=== PATIENT | female | born 1955 | race Caucasian/White ===

== ENCOUNTER 2019-02-26 09:40 | Emergency (ER) | payer BC ==
[2019-02-26] MEDS ORDERED: Ondansetron 4 MG/2 ML SDV IVPUSH ONE (09:43)
[2019-02-26] MEDS ORDERED: Sodium Chloride 0.9% 1,000 ML IV ONE (09:43)
--- NOTE | 2019-02-26 09:45 | EDM.PDOC ---
ED HPI GENERAL MEDICAL PROBLEM - General Chief Complaint: Gastrointestinal Problem Stated Complaint: NAUSEA, DIZZY Time Seen by Provider: 02/26/19 09:44 Source of Information: Reports: Patient - History of Present Illness INITIAL COMMENTS - FREE TEXT/NARRATIVE: HISTORY AND PHYSICAL: History of present illness: [Patient presents with three-month history of dizziness and nausea, some food association, mostly chocolate, however some fatty food association, she was seen in [place] at a walk-in clinic and treated for a UTI with an unknown antibiotic Symptoms do resolve intermittently for several days, she follow-up with Dr. Peraza on return to [place] and had lab through the [facility] which was found to be normal and started on proton X She did have a CT of her abdomen and pelvis which was only significant for a thickened endometrium and has been referred to gynecology by Dr. Peraza. She again has dizziness and dry mouth short of breath sensation however she speaks in full sentences, no retractions or air hunger no pursed lip No fever vomiting chills sweats, no chest pain headache or palpitation no bowel or urine symptoms History of anxiety/panic History of oophorectomy as a teenager secondary to large ovarian cysts Review of systems: As per history of present illness and below otherwise all systems reviewed and negative. Past medical history: As per history of present illness and as reviewed below otherwise noncontributory. Surgical history: As per history of present illness and as reviewed below otherwise noncontributory. Social history: No reported history of drug or alcohol abuse. Family history: As per history of present illness and as reviewed below otherwise noncontributory. Physical exam: HEENT: Atraumatic, normocephalic, pupils reactive, negative for conjunctival pallor or scleral icterus, mucous membranes moist, throat clear, neck supple, nontender, trachea midline. Lungs: Clear to auscultation, breath sounds equal bilaterally, chest nontender. Heart: S1S2, regular, negative for clicks, rubs, or JVD. Abdomen: Soft, nondistended, nontender. Negative for masses or hepatosplenomegaly. Negative for costovertebral tenderness. Pelvis: Stable nontender. Genitourinary: Deferred. Rectal: Deferred. Extremities: Atraumatic, negative for cords or calf pain. Neurovascular unremarkable. Neuro: Awake, alert, oriented. Cranial nerves II through XII unremarkable. Cerebellum unremarkable. Motor and sensory unremarkable throughout. Exam nonfocal. Diagnostics: [CBC CMP UA troponin lipase EKG Chest [address] no contrast Right upper quadrant ultrasound ] Therapeutics: [ normal saline Zofran Levaquin ] Impression: UTI [ nausea Dizziness ] Definitive disposition and diagnosis as appropriate pending reevaluation and review of above. epigastric Pain Score (Numeric/FACES): 2 - Related Data Allergies Allergy/AdvReac Type Severity Reaction Status Date / Time codeine Allergy Hallucinati Verified 02/26/19 09:48 ons Home Meds: Home Meds Pantoprazole [ProTONIX] 40 mg PO DAILY 02/26/19 [History] ED ROS GENERAL - Review of Systems Review Of Systems: See Below ED EXAM, GENERAL - Physical Exam Exam: See Below Course - Vital Signs Last Recorded V/S: Last Vital Signs Temp 97.2 F 02/26/19 09:44 Pulse 65 02/26/19 09:44 Resp 20 02/26/19 09:44 BP 132/56 L 02/26/19 09:44 Pulse Ox 100 02/26/19 09:44 - Orders/Labs/Meds Orders: Active Orders 24 hr Category Date Time Status EKG Documentation Completion [RC] STAT Care 02/26/19 09:44 Active CULTURE URINE [RM] Stat Lab 02/26/19 11:25 Received Labs: Laboratory Tests 02/26/19 02/26/19 02/26/19 Range/Units 09:54 09:54 11:25 WBC 6.11 (4.0-11.0) K/uL RBC 4.48 (4.30-5.90) M/uL Hgb 13.4 (12.0-16.0) g/dL Hct 39.7 (36.0-46.0) % MCV 88.6 (80.0-98.0) fL MCH 29.9 (27.0-32.0) pg MCHC 33.8 (31.0-37.0) g/dL RDW Std Deviation 39.9 (28.0-62.0) fl RDW Coeff of Shauna 12 (11.0-15.0) % Plt Count 197 (150-400) K/uL MPV 10.10 (7.40-12.00) fL Neut % (Auto) 61.1 (48.0-80.0) % Lymph % (Auto) 24.9 (16.0-40.0) % [place] % (Auto) 11.1 (0.0-15.0) % Eos % (Auto) 2.6 (0.0-7.0) % Baso % (Auto) 0.3 (0.0-1.5) % Neut # (Auto) 3.7 (1.4-5.7) K/uL Lymph # (Auto) 1.5 (0.6-2.4) K/uL [place] # (Auto) 0.7 (0.0-0.8) K/uL Eos # (Auto) 0.2 (0.0-0.7) K/uL Baso # (Auto) 0.0 (0.0-0.1) K/uL Nucleated RBC % 0.0 /100WBC Nucleated RBCs # 0 K/uL Sodium 141 (136-145) mmol/L Potassium 3.8 (3.5-5.1) mmol/L Chloride 105 (98-107) mmol/L Carbon Dioxide 26.1 (21.0-32.0) mmol/L BUN 12 (7.0-18.0) mg/dL Creatinine 0.9 (0.6-1.0) mg/dL Est Cr Clr Drug Dosing 54.53 mL/min Estimated GFR (MDRD) > 60.0 ml/min Glucose 97 (74-106) mg/dL Calcium 9.6 (8.5-10.1) mg/dL Total Bilirubin 0.3 (0.2-1.0) mg/dL AST 27 (15-37) IU/L ALT 32 (14-63) IU/L Alkaline Phosphatase 91 (46-116) U/L Troponin I < 0.050 (0.000-0.056) ng/mL Total Protein 7.6 (6.4-8.2) g/dL Albumin 3.9 (3.4-5.0) g/dL Globulin 3.7 (2.6-4.0) g/dL Albumin/Globulin Ratio 1.1 (0.9-1.6) Lipase 109 (73-393) U/L Urine Color YELLOW Urine Appearance CLEAR Urine pH 8.0 (5.0-8.0) Ur Specific [place] 1.010 (1.001-1.035) Urine Protein NEGATIVE (NEGATIVE) mg/dL Urine Glucose (UA) NEGATIVE (NEGATIVE) mg/dL Urine Ketones NEGATIVE (NEGATIVE) mg/dL Urine Occult Blood TRACE-LYSED H (NEGATIVE) Urine Nitrite NEGATIVE (NEGATIVE) Urine Bilirubin NEGATIVE (NEGATIVE) Urine Urobilinogen 0.2 (<2.0) EU/dL Ur Leukocyte Esterase LARGE H (NEGATIVE) Urine RBC 0-2 (0-2/HPF) Urine WBC 5-10 (0-5/HPF) Ur Epithelial Cells OCCASIONAL (NONE-FEW) Urine Bacteria FEW (NEGATIVE) Meds: Medications Discontinued Medications Generic Name Dose Route Start Last Admin Trade Name Freq PRN Reason Stop Dose Admin Sodium Chloride 1,000 mls @ 999 mls/hr 02/26/19 09:43 02/26/19 09:51 Normal Saline IV 02/26/19 10:43 999 mls/hr STAT ONE Administration Ondansetron HCl 8 mg 02/26/19 09:43 02/26/19 09:50 Zofran IVPUSH 02/26/19 09:44 8 mg ONETIME ONE Administration Departure - Departure Time of Disposition: 12:11 Disposition: Home, Self-Care 01 Preliminary Cause of *Q: Sepsis & Multi System Organ Failure Clinical Impression: UTI (urinary tract infection) - Discharge Information Referrals: Rai Peraza MD [Primary Care Provider] - Forms: ED Department Discharge Additional Instructions: Medication as prescribed Return if symptoms persist or worsen Follow-up primary care as scheduled Follow-up with gynecology as scheduled [address] [id number] [facility] [address] [place] [id number] [facility] [address] [place] [id number] The following information is given to patients seen in the emergency department who are being discharged to home. This information is to outline your options for follow-up care. We provide all patients seen in our emergency department with a follow-up referral. The need for follow-up, as well as the timing and circumstances, are variable depending upon the specifics of your emergency department visit. If you don't have a primary care physician on staff, we will provide you with a referral. We always advise you to contact your personal physician following an emergency department visit to inform them of the circumstance of the visit and for follow-up with them and/or the need for any referrals to a consulting specialist. The emergency department will also refer you to a specialist when appropriate. This referral assures that you have the opportunity for follow-up care with a specialist. All of these measure are taken in an effort to provide you with optimal care, which includes your follow-up. Under all circumstances we always encourage you to contact your private physician who remains a resource for coordinating your care. When calling for follow-up care, please make the office aware that this follow-up is from your recent emergency room visit. If for any reason you are refused follow-up, please contact the [facility] emergency department at and asked to speak to the emergency department charge nurse. - My Orders Last 24 Hours: My Active Orders 02/26/19 09:44 EKG Documentation Completion [RC] STAT 02/26/19 11:25 CULTURE URINE [RM] Stat - Assessment/Plan Last 24 Hours: My Active Orders 02/26/19 09:44 EKG Documentation Completion [RC] STAT 02/26/19 11:25 CULTURE URINE [RM] Stat
[2019-02-26 10:29] LABS: CHLORIDE,CL 105 mmol/L (98-107); SODIUM,NA 141 mmol/L (136-145)
--- NOTE | 2019-02-26 10:42 | CT ---
INDICATION: PAIN, DIZZINESS INDICATION: Pain, dizziness. TECHNIQUE: CT head without contrast. Coronal/sagittal reconstruction images. COMPARISON: None FINDINGS: CSF spaces: Within normal limits for age. Brain parenchyma: The avelar-white differentiation is normal. No sign of mass, hemorrhage, or midline shift. Skull base and calvarium: The visualized paranasal sinuses and mastoid air cells are clear. The visualized orbits are grossly unremarkable. No skull fractures. IMPRESSION: Normal noncontrast head CT. Dictated by Jesse Jamison MD @ 02/26/2019 10:39:41 AM Please note that all CT scans at this facility use dose modulation, iterative reconstruction, and/or weight-based dosing when appropriate to reduce radiation dose to as low as reasonably achievable. Dictated by: Jesse Jamison MD @ 02/26/2019 10:39:56 (Electronically Signed)
--- NOTE | 2019-02-26 11:17 | CR ---
INDICATION: Pt w/dyspnea, cp. TECHNIQUE: Chest 1 view. COMPARISON: None. FINDINGS: Cardiovascular and mediastinum: Heart size and vasculature are normal in caliber and appearance. Mediastinum is within normal limits. Lungs and pleural space: Lungs are clear. No sign of infiltrate or mass. No sign of pleural effusion. No pneumothorax. Bones and soft tissues: No significant findings. IMPRESSION: Unremarkable chest. Dictated by: Quirino Chaudhary MD @ 02/26/2019 11:15:43 (Electronically Signed)
--- NOTE | 2019-02-26 11:37 | US ---
INDICATION: HISTORY: Abdominal pain. COMPARISON: CT of the abdomen and pelvis 02/20/2019. TECHNIQUE: Ultrasound of the abdomen limited. FINDINGS: Pancreas is normal where visualized. No peripancreatic fluid collections are seen. No solid hepatic mass. Non cirrhotic liver morphology. Liver is not enlarged. There is no perihepatic ascites. Main portal vein is patent. Extrahepatic common duct measures 5 mm at the chidi hepatis. No shadowing calculi. No secondary signs for cholecystitis. Right kidney measures 9.8 cm in length. No hydronephrosis or solid mass. No perinephric fluid collection. IMPRESSION: 1. No cholelithiasis, or secondary signs for cholecystitis. 2. Normal caliber biliary tree. Dictated by Jesse Jamison MD @ 02/26/2019 11:35:55 AM Dictated by: Jesse Jamison MD @ 02/26/2019 11:36:02 (Electronically Signed)
== END 2019-02-26 12:23 | disposition home or self-care (01) ==
LOC: MW.ED 09:40
DX: N39.0 Urinary tract infection, site not specified (principal); Z88.5 Allergy status to narcotic agent; Z79.899 Other long term (current) drug therapy
CPT/HCPCS: 36415; 70450; 71045; 76705; 80053; 81001; 83690; 84484; 85025; 87086; 93005; 96361; 96374; 99285; J2405; J7040

== ENCOUNTER 2021-05-14 13:27 | Emergency (ER) | payer BC ==
[2021-05-14] MEDS ORDERED: Diphtheria,Pertussis(Acell),Tetanus Vaccine 0.5 ML Syringe IM ONE (13:49)
[2021-05-14] MEDS ORDERED: Ampicillin/Sulbactam Na 3 GM in Sodium Chloride 0.9% 100 ML IV ONE ×2 (13:50→14:15)
[2021-05-14] MEDS ORDERED: VANCOmycin 1.5 GM/300 ML 1.5 GM in Premix Bag 1 BAG IV ONE (13:51)
[2021-05-14] MEDS ORDERED: Morphine 4 MG/ML Syringe IVPUSH STA (14:25)
[2021-05-14 14:34] LABS: BLOOD UREA NITROGEN,BUN 18 mg/dL (7.0-18.0); CARBON DIOXIDE,CO2 26.2 mmol/L (21.0-32.0); CHLORIDE,CL 102 mmol/L (98-107); GLUCOSE RANDOM 96 mg/dL (74-106); SODIUM,NA 137 mmol/L (136-145)
[2021-05-14] MEDS ORDERED: Ondansetron 4 MG/2 ML SDV IVPUSH ONE ×2 (14:42→14:43)
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
[2021-05-14] MEDS ORDERED: Ondansetron 4 MG/2 ML SDV IVPUSH PRN (15:43)
[2021-05-14] MEDS ORDERED: Albuterol/Ipratropium 3.0-0.5 MG/3 ML Neb Soln NEB PRN (15:43)
--- NOTE | 2021-05-14 16:11 | PCM.HP.2 ---
H&P History of Present Illness - General Date of Service: 05/14/21 Admit Problem/Dx: Admission Diagnosis/Problem Admission Diagnosis/Problem Cellulitis R hand Pain Score (Numeric/FACES): 7 - Related Data Allergies/Adverse Reactions: Allergies Allergy/AdvReac Type Severity Reaction Status Date / Time codeine Allergy Hallucinati Verified 05/14/21 13:32 ons Home Medications: Home Meds SUMAtriptan [Imitrex] 50 mg PO ASDIRECTED PRN 05/14/21 [History] Past Medical History HEENT History: Reports: None Cardiovascular History: Reports: None Respiratory History: Reports: None Gastrointestinal History: Reports: Hiatal Hernia Genitourinary History: Reports: None [employer] History: Reports: None Musculoskeletal History: Reports: Fracture, Other (See Below) Other Musculoskeletal History: fx of R hand 2nd and 5th digit Neurological History: Reports: Concussion, Migraines, Other (See Below) Other Neuro History: Multiple concussions in earlier years Psychiatric History: Reports: None Endocrine/Metabolic History: Reports: None Hematologic History: Reports: None Immunologic History: Reports: None Oncologic (Cancer) History: Reports: None Dermatologic History: Reports: None - Infectious Disease History Infectious Disease History: Reports: Chicken Pox, Hepatitis B, Measles, Mumps - Past Surgical History Head Surgeries/Procedures: Reports: None GI Surgical History: Reports: None Female Surgical History: Reports: Breast Biopsy, Other (See Below) Other Female Surgeries/Procedures: Ovary removed Neurological Surgical History: Reports: None Musculoskeletal Surgical History: Reports: Other (See Below) Other Musculoskeletal Surgeries/Procedures:: surgical repair of R hand 2nd digit Social & Family History - Family History Family Medical History: Unobtainable Other Dermatologic Family History: Adopted - Tobacco Use Tobacco Use Status *Q: Never Tobacco User - Caffeine Use Caffeine Use: Reports: None - Recreational Drug Use Recreational Drug Use: No Exam - Vital Signs Vital Signs: Last Vital Signs Temp 100.3 F 05/14/21 13:38 Pulse 81 05/14/21 15:12 Resp 18 05/14/21 15:12 BP 117/57 L 05/14/21 15:12 Pulse Ox 94 L 05/14/21 15:12 Weight: 115 lb - Patient Data Lab Results Last 24 hrs: Laboratory Results - last 24 hr 08/20/21 08/20/21 08/20/21 Range/Units 14:00 14:00 14:16 WBC 13.28 H (4.0-11.0) K/uL RBC 3.96 L (4.30-5.90) M/uL Hgb 12.2 (12.0-16.0) g/dL Hct 36.2 (36.0-46.0) % MCV 91.4 (80.0-98.0) fL MCH 30.8 (27.0-32.0) pg MCHC 33.7 (31.0-37.0) g/dL RDW Std Deviation 41.3 (28.0-62.0) fl RDW Coeff of Shauna 12 (11.0-15.0) % Plt Count 208 (150-400) K/uL MPV 10.00 (7.40-12.00) fL Neut % (Auto) 80.2 H (48.0-80.0) % Lymph % (Auto) 9.9 L (16.0-40.0) % [place] % (Auto) 9.6 (0.0-15.0) % Eos % (Auto) 0.2 (0.0-7.0) % Baso % (Auto) 0.1 (0.0-1.5) % Neut # (Auto) 10.7 H (1.4-5.7) K/uL Lymph # (Auto) 1.3 (0.6-2.4) K/uL [place] # (Auto) 1.3 H (0.0-0.8) K/uL Eos # (Auto) 0.0 (0.0-0.7) K/uL Baso # (Auto) 0.0 (0.0-0.1) K/uL Nucleated RBC % 0.0 /100WBC Nucleated RBCs # 0 K/uL Sodium 137 (136-145) mmol/L Potassium 4.0 (3.5-5.1) mmol/L Chloride 102 (98-107) mmol/L Carbon Dioxide 26.2 (21.0-32.0) mmol/L BUN 18 (7.0-18.0) mg/dL Creatinine 0.9 (0.6-1.0) mg/dL Est Cr Clr Drug Dosing 50.63 mL/min Estimated GFR (MDRD) > 60.0 ml/min Glucose 96 (74-106) mg/dL Lactic Acid 0.7 (0.4-2.0) mmol/L Calcium 8.8 (8.5-10.1) mg/dL Total Bilirubin 0.6 (0.2-1.0) mg/dL AST 33 (15-37) IU/L ALT 51 (14-63) IU/L Alkaline Phosphatase 81 (46-116) U/L Total Protein 7.3 (6.4-8.2) g/dL Albumin 4.1 (3.4-5.0) g/dL Globulin 3.2 (2.6-4.0) g/dL Albumin/Globulin Ratio 1.3 (0.9-1.6) Result Diagrams: 05/14/21 14:00 05/14/21 14:00 Sepsis Event Note - Evaluation Sepsis Screening Result: No Definite Risk - Focused Exam Vital Signs: Vital Signs Temp Pulse Resp BP Pulse Ox 05/14/21 15:12 81 18 117/57 L 94 L 05/14/21 13:38 100.3 F 93 15 140/56 L 100 05/14/21 13:33 100.3 F 88 15 140/56 L 100 Orders Last 24hrs: Active Orders 24 hr Category Date Time Status Admission Status [Patient Status] [ADT] Stat ADT 05/14/21 15:10 Active Ambulate [RC] ASDIRECTED Care 05/14/21 15:43 Ordered Antiembolic Devices [RC] PER UNIT ROUTINE Care 05/14/21 15:46 Ordered Oxygen Therapy [RC] PRN Care 05/14/21 15:43 Ordered RT Aerosol Therapy [RC] ASDIRECTED Care 05/14/21 15:49 Ordered VTE/DVT Education [RC] PER UNIT ROUTINE Care 05/14/21 15:43 Ordered Vaccines to be Administered [RC] PER UNIT ROUTINE Care 05/14/21 13:49 Active Vital Signs [RC] Q4H Care 05/14/21 15:43 Ordered NPO [Nothing Per Oral Diet] [DIET] Diet 05/14/21 Dinner Active BASIC METABOLIC PANEL,BMP [CHEM] AM Lab 05/15/21 05:11 Ordered CBC WITH AUTO DIFF [HEME] AM Lab 05/15/21 05:11 Ordered CORONAVIRUS COVID-19 CHARANJIT [MOLEC] Stat Lab 05/14/21 15:14 Received Albuterol/Ipratropium [DuoNeb 3.0-0.5 MG/3 ML] Med 05/14/21 15:43 Ordered 3 ml NEB Q4HRRT PRN Ondansetron [Zofran] Med 05/14/21 15:43 Ordered 4 mg IVPUSH Q4H PRN Sequential Compression Device [OM.PC] Per Unit Routine Oth 05/14/21 15:44 Ordered Medication Orders Albuterol/Ipratropium (Albuterol/Ipratropium 3.0-0.5 Mg/3 Ml Neb Soln) 3 ml NEB Q4HRRT PRN PRN Reason: Shortness Of Breath/wheezing Ondansetron HCl (Ondansetron 4 Mg/2 Ml Sdv) 4 mg IVPUSH Q4H PRN PRN Reason: Nausea/Vomiting
[2021-05-14] MEDS ORDERED: Piperacillin/Tazobactam 3.375 GM in Sodium Chloride 0.9% 50 ML IV SCH (20:00)
== END 2021-05-14 17:19 | disposition left against medical advice (07) ==
LOC: MW.ED 13:27 → MW.MS 15:10 → UNDOADMOB 15:10 → MW.ED 17:19
DX: L03.011 Cellulitis of right finger (principal); Z88.5 Allergy status to narcotic agent; Z23 Encounter for immunization
CPT/HCPCS: 73120; 80053; 83605; 85025; 87070; 87077; 87186; 87205; 87635; 90471; 90715; 96365; 96367; 96375; 99285; J0295; J2270; J2405; J3370; J7050; 99284; U0002